=== PATIENT | female | born 1970 | race Two or more races ===

== ENCOUNTER 2025-05-11 14:06 | Emergency (ER) | payer OTHER ==
[~2025-05-11] VITALS: Ht 167.6 cm; Wt 76.7 kg
[2025-05-11] MEDS ORDERED: LEVO-T50 MCG (15:00)
[2025-05-11] MEDS ORDERED: WEGOVY0.25 MG/0. SQ (15:00)
[2025-05-11] MEDS ORDERED: PRALUENT P75 MG/1 ML (15:00)
[2025-05-11] MEDS ORDERED: EMGALITY P120 MG/1 M (15:03)
[2025-05-11] MEDS ORDERED: BOTOX100 UNIT (15:03)
[2025-05-11 15:53] LABS: BASO % 1.3 % (0.1-1.2); EOS # 0.06 (0.04-0.54); EOS % 1.0 % (0.7-7.0); LYMPH # 1.90 (1.18-3.74); LYMPH % 30.9 % (19.3-53.1); MEAN PLATELET VOLUME 9.30 fl (9.4-12.4); MONO # 0.45 (0.24-0.82); MONO % 7.3 % (4.7-12.5); NEUT # 3.64 (1.56-6.13); NEUT % 59.3 % (34.0-71.1); RED CELL DISTRIBUTION WIDTH 14.1 % (11.6-14.4)
[2025-05-11 16:15] LABS: BUN CREA RATIO 17.0 (7.0-25.0); CREATININE SERUM 0.87 mg/dL (0.55-1.02); GFR 67.6; GLUCOSE FASTING 92.0 mg/dL (65-100); OSMOLALITY SERUM 285.0 MOSM/KG (275-295)
[2025-05-11] MEDS ORDERED: PEPCID AC20 MG PO (19:25)
[2025-05-11] MEDS ORDERED: ANALPRAM HC 2.530 GM RECTAL (19:25)
[2025-05-11] MEDS ORDERED: NORFLEX100MG PO (19:25)
== END 2025-05-11 19:56 | disposition home or self-care (01) ==
LOC: ER 14:06
PROVIDERS: Emergency Medicine
DX: K62.5 Hemorrhage of anus and rectum (principal); I10 Essential (primary) hypertension; E11.9 Type 2 diabetes mellitus without complications
CPT/HCPCS: 36415; 74177; Q9965